=== PATIENT | female | born 1975 | race Hispanic/Latino ===

== ENCOUNTER → 2024-04-05 | Outpatient (CLI) | payer BC | END | disposition home or self-care (01) | LOC: RAH 15:10 | PROVIDERS: ATTEND Obstetrics & Gynecology | DX: N83.201 Unspecified ovarian cyst, right side (principal); D26.1 Other benign neoplasm of corpus uteri; N93.8 Other specified abnormal uterine and vaginal bleeding | CPT/HCPCS: 76830 ==